=== PATIENT | female | born 1970 | race Hispanic/Latino ===

== ENCOUNTER 2021-08-22 22:47 | Emergency (ER) | payer OTHER ==
[2021-08-22] MEDS ORDERED: SODIUM CHLORIDE 0.9% 1000 ML 1,000 ML IV ONE (23:22)
[2021-08-22] MEDS ORDERED: LIP THERAPY VASELINE TP PRN (23:25)
[2021-08-22] MEDS ORDERED: SODIUM CHLORIDE 0.9% 500 ML 500 ML IV ONE (23:25)
[2021-08-22] MEDS ORDERED: TETANUS,DIPH,PERTUSS(ACELL) VACCINE 0.5 ML SYRINGE IM ONE (23:25)
[2021-08-22] MEDS ORDERED: MINERAL OIL/PETROLATUM, WHITE OPHTH OINT 3.5 GM OU PRN (23:25)
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
[2021-08-22 23:40] LABS: Basophils % (Auto) 0.2 % (0.0-1.8); Eosinophils # (Auto) 0.1 K/mm3 (0.0-0.4); Eosinophils % (Auto) 1.2 % (0.0-4.3); Hematocrit 41.9 % (30.3-42.9); Hemoglobin 13.1 gm/dl (10.1-14.3); Lymphocytes # (Auto) 4.4 K/mm3 (1.2-5.4); Lymphocytes % (Auto) 43.5 % (13.4-35.0); Mean Corpuscular HGB Conc 31 % (30-34); Mean Corpuscular Volume 95 fl (79-97); Monocytes # (Auto) 0.5 K/mm3 (0.0-0.8); Monocytes % (Auto) 5.3 % (0.0-7.3); Platelet Count 238 K/mm3 (140-440); Red Blood Count 4.41 M/mm3 (3.65-5.03); Red Cell Distribution Width 15.4 % (13.2-15.2)
--- NOTE | 2021-08-22 23:47 | Event Note ---
Date: 08/22/21 I assisted with traumatic arrest with placement of Right sided chest tube and removal of large bore cath placed by EMS after successful chest tube placement. Tegraderm placed over both sites. - Chest Tube Chest Tube Location: fifth interspace Size of [place] Tube (cm): 29 (cm) Chest Tube Procedure: betadine prep Staples of Air [place]: Yes Number of Attempts: 1 Time of Successful Intubation: 23:15 Tube Drainage: no drainage Tube Sutured to Skin: Yes Post Procedure CXR?: Yes
[2021-08-22 23:51] LABS: INR 0.96 (0.87-1.13)
[2021-08-22 23:52] LABS: Partial Thromboplastin Time 28.6 Sec. (24.2-36.6)
[2021-08-22 23:57] LABS: Albumin 3.5 g/dL (3.9-5); Calcium 8.5 mg/dL (8.4-10.2)
[2021-08-23 00:21] LABS: ABG Base Excess -10.2 mmol/L (-2.0-3.0); ABG HCO3 18.6 mmol/L (20.0-26.0); ABG Methemoglobin 0.6 % (0.0-1.5); ABG Oxygen Saturation 98.5 % (95.0-99.0); ABG PCO2 52.5 mm Hg
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
[2021-08-23 01:06] VITALS: BP 105/62
[2021-08-23] MEDS ORDERED: SENNOSIDES/DOCUSATE SODIUM 8.6/50 MG TAB FEEDTUBE SCH (10:00)
[2021-08-23] MEDS ORDERED: FAMOTIDINE 20 MG/2 ML INJ IV SCH (10:00)
== END 2021-08-23 01:16 | disposition short-term general hospital (02) ==
LOC: ED 22:47
DX: I46.9 Cardiac arrest, cause unspecified (principal); G43.909 Migraine, unspecified, not intractable, without status migrainosus; V89.2XXA Person injured in unspecified motor-vehicle accident, traffic, initial encounter; Y93.89 Activity, other specified; Y92.89 Other specified places as the place of occurrence of the external cause; Y99.8 Other external cause status
CPT/HCPCS: 31500; 32551; 36415; 36430; 71045; 72170; 80053; 82550; 82803; 85025; 85610; 85730; 86850; 86900; 86901; 86920; 90471; 90715; 92950; 96360; 99291; J7030; P9016; 80320; 99285; G0480; J0690